=== PATIENT | male | born 1995 | race Caucasian/White ===

== ENCOUNTER 2022-01-15 12:15 | Emergency (ER) | payer SELFPAY ==
[2022-01-15] MEDS ORDERED: Ibuprofen 800 MG TAB ONE (12:32)
[2022-01-15] MEDS ORDERED: Acetaminophen 500 MG TAB ONE (13:29)
== END 2022-01-15 13:33 | disposition home or self-care (01) ==
LOC: BURERS 12:15
DX: S83.92XA Sprain of unspecified site of left knee, initial encounter (principal); X50.9XXA Other and unspecified overexertion or strenuous movements or postures, initial encounter